=== PATIENT | female | born 1970 | race Caucasian/White ===

== ENCOUNTER 2019-12-05 06:05 | Day surgery (SDC) | payer OTHER ==
[~2019-12-05] VITALS: Ht 152.4 cm; Wt 85.3 kg
[~2019-12-05 06:05] MED LIST: HYDROCODON-ACE1 EAC8 PO; LISINOPRIL-HCT1 EAC2 PO; MAGNESIUM30 MG PO; SUDAFED 12-HOU120 MG PO; SUPER B MAXI C0.4 MG PO; VENTOLIN HFA18 GM INH; VITAMIN D325 MCG PO; ZYRTEC10 M3 PO
[2019-12-05] MEDS ORDERED: AMOX TR-K CLV1 EAC1 PO (06:27)
--- NOTE | 2019-12-05 08:27 | NUR ---
12/05/19 0827 Alma Hull 0754 PT ARRIVED IN PACU SLEEPY WITH NO C/O'S. ABD SOFT. 0810 PT AWAKENS TO VERBAL STIMULI. 0825 AWAKE TALKING TO STAFF.
--- NOTE | 2019-12-12 07:01 | OR ---
[facility] [address] [place], [place] [address] Signed DATE OF OPERATION: 12/05/2019 SURGEON: Yon Lowery MD PREOPERATIVE DIAGNOSIS: Screening. POSTOPERATIVE DIAGNOSES: 1. Dtvzgkt-as-xhamorjh sigmoid diverticulosis. 2. 4 mm polyp at 55 cm. 3. Minimal internal hemorrhoids. PROCEDURE: Colonoscopy with biopsy. ESTIMATED BLOOD LOSS: None. INDICATIONS: Martha is a 49-year-old female, asked to see me for her initial screening colonoscopy. She reminded me that I helped her with his colonoscopy. Consequently, she is familiar with the process. We did review colonoscopy in detail. She told me she has no lower GI complaints. There is no family history of colon cancer or polyps. She understands there is risk including, but not limited to gas bloating, crampy abdominal pain, bleeding, perforation requiring surgery, and missed diagnosis. She also understands the need for IV conscious sedation. She had expressed understanding and wished to proceed. PROCEDURE NOTE: Martha was taken into our endoscopy suite and placed in the left lateral decubitus position. We gave her Zofran 8 mg IV for perioperative nausea. She was also given 9 mg of Versed and 150 mcg of fentanyl to cover the case. A digital rectal exam was performed and this was unremarkable. The adult colonoscope was introduced and advanced under direct visualization of camera without difficulty. Her prep was quite excellent. We could easily see the appendiceal orifice and ileocecal valve. The scope was slowly withdrawn. We took pictures throughout for photodocumentation. She had a tiny 4 mm polyp right around 55 cm. It was easily removed with hot biopsy forceps. She does have diverticula in the distal left colon and sigmoid colon. They were moderate in size, but few in number, and scattered about. The rectum was unremarkable. Upon retroflexion of the scope, she has very minimal internal hemorrhoid tissue. After this, the gas was Electronically Signed By: YON LOWERY MD 12/05/19 0932 Electronically Signed By: YON LOWERY MD 12/12/19 0752 PATIENT NAME: MARTHA MOCTEZUMA OPERATIVE REPORT DATE OF : 66 REPORT #: [id number] PHYSICIAN: YON LOWERY MD PCP: CJ OSULLIVAN PA-C REPORT IS CONFIDENTIAL AND NOT TO BE RELEASED WITHOUT AUTHORIZATION [facility] [address] [place] [id number] Signed suctioned out and colonoscope removed. Martha tolerated procedure quite well. RECOMMENDATIONS: I will see Martha back in my office in 7 to 14 days to review her results. Yon Lowery MD ALB/XIOMARAL /[id number] cc: MD Brayden Avalos MD Chloe K Norris, PA-C Copies: YON LOWERY MD, JONATHAN MD NORRIS, CHLOE K PA-C ~ Electronically Signed By: YON LOWERY MD 12/05/19 0932 Electronically Signed By: YON LOWERY MD 12/12/19 0752 PATIENT NAME: MARTHA MOCTEZUMA REG OPERATIVE REPORT DATE OF : 66 REPORT #: [id number] PHYSICIAN: YON LOWERY MD PCP: CJ OSULLIVAN PA-C REPORT IS CONFIDENTIAL AND NOT TO BE RELEASED WITHOUT AUTHORIZATION
== END 2019-12-05 08:30 | disposition home or self-care (01) ==
LOC: DS 06:05 → OPS 06:05 → DS 07:30 → OPS 08:30
PROVIDERS: Colon & Rectal Surgery
PROC: 0DBN8ZX Excision of Sigmoid Colon, Via Natural or Artificial Opening Endoscopic, Diagnostic (ICD-10-PCS; principal; 2019-12-05 06:45)
DX: Z12.11 Encounter for screening for malignant neoplasm of colon (principal); K57.30 Diverticulosis of large intestine without perforation or abscess without bleeding; K63.5 Polyp of colon; K64.8 Other hemorrhoids; I10 Essential (primary) hypertension; J44.9 Chronic obstructive pulmonary disease, unspecified; E78.5 Hyperlipidemia, unspecified; E66.9 Obesity, unspecified; F41.9 Anxiety disorder, unspecified; F17.210 Nicotine dependence, cigarettes, uncomplicated; Z68.36 Body mass index [BMI] 36.0-36.9, adult; Z79.899 Other long term (current) drug therapy
CPT/HCPCS: 99153; G0500; J2250; J2405; J3010

== ENCOUNTER 2023-01-14 18:16 | Emergency (ER) | payer OTHER ==
[~2023-01-14] VITALS: Ht 152.4 cm; Wt 98.8 kg
[~2023-01-14 18:16] MED LIST changes: +AMOX TR-K CLV1 EAC1 PO
--- OUTSIDE RECORDS SUMMARY | 2023-01-14 18:20 | XMS ---
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 [facility] has no Care Guidelines for this patient. Ryan VISIT COUNT (12 MO.) 1 ISABELLE Fernández TOTAL 1 NOTE: Visits indicate total known visits. ED/C VISIT TRACKING (12 MO.) 01/14/2023 18:17 [facility]LE [facility] OR TYPE: Emergency COMPLAINT: - FACIAL SWELLING INPATIENT VISIT TRACKING (12 MO.) No inpatient visits to display in this time frame [email or web address]
[2023-01-14] MEDS ORDERED: CLEOCIN HCL300 MG PO (22:12)
[2023-01-14] MEDS ORDERED: HYDROCODON-ACE1 EA10 PO (22:12)
== END 2023-01-14 22:26 | disposition home or self-care (01) ==
LOC: ED 18:16
DX: K04.7 Periapical abscess without sinus (principal); F17.200 Nicotine dependence, unspecified, uncomplicated; Z79.899 Other long term (current) drug therapy
CPT/HCPCS: 36415; 70487; 80053; 85025; 96366; 99283-25; A9270; J0696; Q9967